=== PATIENT | male | born 1960 | race Two or more races ===

== ENCOUNTER 2018-05-27 13:48 | Emergency (ER) | payer OTHER ==
[~2018-05-27] VITALS: Ht 162.6 cm; Wt 68.0 kg
[2018-05-27 14:01] VITALS: BP 137/83
--- NOTE | 2018-05-27 14:30 | Diagnostic Imaging Report ---
Indication: Chest pain Comparison: None A single view chest radiograph was obtained. Findings: Cardiomediastinal appearance is within normal limits for age. The lungs are clear. Pulmonary vascularity is appropriate. The diaphragmatic contour is smooth and costophrenic angles are sharp. No pleural effusions are identified. The bones are unremarkable. Impression: No acute findings
[2018-05-27 14:37] LABS: BASOPHILS % (AUTO) 1.8 % (0.0-2.0); EOSINOPHILS % (AUTO) 0.9 % (0.0-3.0); HEMATOCRIT 41.6 % (42.0-52.0); LYMPHOCYTES % (AUTO) 22.8 % (20.0-45.0); MEAN CORPUSCULAR VOLUME 89 FL (80-99); MONOCYTES % (AUTO) 8.2 % (1.0-10.0); NEUTROPHILS % (AUTO) 66.3 % (45.0-75.0); PLATELET COUNT 206 K/UL (150-450); RED BLOOD COUNT 4.67 M/UL (4.70-6.10); RED CELL DISTRIBUTION WIDTH 11.6 % (11.6-14.8); WHITE BLOOD COUNT 5.1 K/UL (4.8-10.8)
[2018-05-27 14:49] LABS: ANION GAP 5 mmol/L (5-15); BLOOD UREA NITROGEN 21 mg/dL (7-18); CALCIUM 9.3 MG/DL (8.5-10.1); CARBON DIOXIDE 30 MMOL/L (21-32); CHLORIDE 104 MMOL/L (98-107); CREATININE 0.8 MG/DL (0.55-1.30); SODIUM 139 MMOL/L (136-145)
--- NOTE | 2018-05-27 14:50 | Emergency Room Report ---
History of Present Illness General Chief Complaint: Chest Pain Source: Patient Present Illness HPI Patient 58-year-old male brought in by self after increased chest discomfort. Patient reported having increased burning sensation associated with some nausea. This had began after the recently having his house fumigated. The patient was having increased nausea. He reports having prior history of high cholesterol which is controlled medications. He denies prior cardiac history. The pain is not worse with exertion. Allergies: Coded Allergies: No Known Allergies (Unverified , 05/27/18) Patient History Past Medical History: see triage record Reviewed Nursing Documentation: PMH: Agreed; PSxH: Agreed Nursing Documentation-PMH Past Medical History: No History, Except For Hx Hypertension: Yes History Of Psychiatric Problem: Yes - anxiety Review of Systems All Other Systems: negative except mentioned in HPI Physical Exam Vital Signs Date Time Temp Pulse Resp B/P (MAP) Pulse Ox O2 Delivery O2 Flow Rate FiO2 05/27/18 13:50 98.5 70 18 134/86 97 Room Air 98.4 Sp02 EP Interpretation: reviewed, normal General Appearance: normal inspection, well appearing, no apparent distress, alert, GCS 15 Head: atraumatic ENT: normal ENT inspection, hearing grossly normal, normal voice Neck: normal inspection, full range of motion, supple, no bony tend Respiratory: normal inspection, lungs clear, normal breath sounds, no respiratory distress, no retraction, no wheezing Cardiovascular #1: regular rate, rhythm, no edema Gastrointestinal: normal inspection, normal bowel sounds, non tender, soft, no guarding, no hernia Genitourinary: no CVA tenderness Musculoskeletal: normal inspection, back normal, normal range of motion Neurologic: normal inspection, alert, oriented x3, responsive, cyber defense incident responder III-XII nml as tested, speech normal Psychiatric: normal inspection, judgement/insight normal, mood/affect normal Skin: normal inspection, normal color, no rash Medical Decision Making Diagnostic Impression: Primary Impression: Atypical chest pain ER Course Patient presented for chest pain. Differential diagnosis included but was not limited to acute coronary syndrome, pulmonary embolism, pneumonia, aortic dissection, shingles, pneumothorax, aortic dissection, esophageal rupture, pericarditis. Because of complexity of patient's case laboratory testing and imaging studies were ordered.Laboratory testing was notable for a negative troponin. Given the patient's several days of constant pain. The patient is essentially ruled out for AR. The patient's EKG was noted be unremarkable. The patient is advised outpatient follow-up with GI due to burning sensation in his chest. The patient also is advised outpatient cardiology workup. Labs Test 05/27/18 13:57 White Blood Count 5.1 K/UL (4.8-10.8) Red Blood Count 4.67 M/UL (4.70-6.10) Hemoglobin 14.0 G/DL (14.2-18.0) Hematocrit 41.6 % (42.0-52.0) Mean Corpuscular Volume 89 FL (80-99) Mean Corpuscular Hemoglobin 30.0 PG (27.0-31.0) Mean Corpuscular Hemoglobin Concent 33.7 G/DL (32.0-36.0) Red Cell Distribution Width 11.6 % (11.6-14.8) Platelet Count 206 K/UL (150-450) Mean Platelet Volume 7.7 FL (6.5-10.1) Neutrophils (%) (Auto) 66.3 % (45.0-75.0) Lymphocytes (%) (Auto) 22.8 % (20.0-45.0) Monocytes (%) (Auto) 8.2 % (1.0-10.0) Eosinophils (%) (Auto) 0.9 % (0.0-3.0) Basophils (%) (Auto) 1.8 % (0.0-2.0) Prothrombin Time 10.4 SEC (9.30-11.50) Prothromb Time International Ratio 1.0 (0.9-1.1) Activated Partial Thromboplast Time 32 SEC (23-33) Sodium Level 139 MMOL/L (136-145) Potassium Level 4.0 MMOL/L (3.5-5.1) Chloride Level 104 MMOL/L (98-107) Carbon Dioxide Level 30 MMOL/L (21-32) Anion Gap 5 mmol/L (5-15) Blood Urea Nitrogen 21 mg/dL (7-18) Creatinine 0.8 MG/DL (0.55-1.30) Estimat Glomerular Filtration Rate > 60 mL/min (>60) Glucose Level 99 MG/DL (74-106) Calcium Level 9.3 MG/DL (8.5-10.1) Total Bilirubin 0.5 MG/DL (0.2-1.0) Aspartate Amino Transf (AST/SGOT) 21 U/L (15-37) Alanine Aminotransferase (ALT/SGPT) 47 U/L (12-78) Alkaline Phosphatase 85 U/L (46-116) Total Creatine Kinase 119 U/L (26-308) Creatine Kinase MB 0.9 NG/ML (0.0-3.6) Creatine Kinase MB Relative Index 0.7 Troponin I 0.000 ng/mL (0.000-0.056) Pro-B-Type Natriuretic Peptide 46 pg/mL (0-125) Total Protein 8.3 G/DL (6.4-8.2) Albumin 4.2 G/DL (3.4-5.0) Globulin 4.1 g/dL Albumin/Globulin Ratio 1.0 (1.0-2.7) EKG Diagnostic Results Rate: normal Rhythm: NSR ST Segments: no acute changes Last Vital Signs Date Time Temp Pulse Resp B/P (MAP) Pulse Ox O2 Delivery O2 Flow Rate FiO2 05/27/18 14:01 98.4 67 18 137/83 100 Room Air 98.4 Status: improved Disposition: HOME, SELF-CARE Condition: Stable Scripts Famotidine (PEPCID AC) 20 Mg Tablet 20 MG PO DAILY, #30 TAB Prov: Omer Lowe MD 05/27/18 Ondansetron (Zofran) 4 Mg Tablet 4 MG ORAL Q6H PRN for Nausea & Vomiting, #30 TAB 0 Refills Prov: Omer Lowe MD 05/27/18 Referrals: NOT CHOSEN IPA/,REFERRING (PCP) Omer Lowe MD May 27, 2018 14:50
[2018-05-27 15:04] LABS: ALANINE AMINOTRANSFERASE 47 U/L (12-78); ALBUMIN 4.2 G/DL (3.4-5.0); ALKALINE PHOSPHATASE 85 U/L (46-116); ASPARTATE AMINO TRANSFERASE 21 U/L (15-37); BILIRUBIN,TOTAL 0.5 MG/DL (0.2-1.0); CKMB 0.9 NG/ML (0.0-3.6); CREATINE KINASE 119 U/L (26-308)
[2018-05-27] MEDS ORDERED: ZOFRAN4 MG ORAL (15:11)
[2018-05-27] MEDS ORDERED: PEPCID AC20 M2 PO (15:11)
[2018-05-27 15:30] VITALS: BP 120/74
== END 2018-05-27 15:33 | disposition home or self-care (01) ==
LOC: EMR 14:20
DX: R07.89 Other chest pain (principal)
CPT/HCPCS: 36415; 71045; 80053; 82550; 82553; 83880; 84484; 85025; 85610; 85730; 93005; 96374; 96375; 99284; J2405; S0028